=== PATIENT | female | born 1955 | race Caucasian/White ===

== ENCOUNTER 2023-12-14 12:28 | Emergency (ER) | payer OTHER ==
[~2023-12-14] VITALS: Ht 170.2 cm; Wt 62.6 kg
[2023-12-14 13:43] VITALS: BP 133/64; TEMP 98.5; O2SAT 98
== END 2023-12-14 13:48 | disposition home or self-care (01) ==
LOC: ER 12:28
DX: S92.355A Nondisplaced fracture of fifth metatarsal bone, left foot, initial encounter for closed fracture (principal); Z60.2 Problems related to living alone; W01.0XXA Fall on same level from slipping, tripping and stumbling without subsequent striking against object, initial encounter; Y93.89 Activity, other specified; Y92.89 Other specified places as the place of occurrence of the external cause; Y99.8 Other external cause status
CPT/HCPCS: 73610-TC; 73630-TC